=== PATIENT | female | born 1960 | race Caucasian/White ===

== ENCOUNTER 2020-02-20 10:51 | Outpatient (CLI) | payer OTHER, SELFPAY ==
--- NOTE | ~2020-02-20 | MM_ITS ---
EXAMINATION: MM screening [facility] w santy HISTORY: Screening mammogram TECHNIQUE: Craniocaudal and mediolateral oblique 3-D tomosynthesis images were obtained and synthetic 2-D images were generated. CAD analysis was submitted and interpreted. COMPARISON: Comparison to multiple prior studies sequentially, with oldest reviewed study dated 09/08. BREAST PARENCHYMAL COMPOSITION: There are scattered areas of fibroglandular density. FINDINGS: There is no evidence of suspicious mass, calcification, or architectural distortion to sugg est malignancy in either breast. There has been no suspicious interval change. IMPRESSION: 1. No mammographic evidence of malignancy. 2. Recommend routine screening mammography in one year. BI-RADS Category 1: Negative Reviewed, dictated and finalized at location A.
== END 2020-02-20 10:52 | disposition home or self-care (01) ==
PROVIDERS: PCP Nurse Practitioner Family; Visit Provider Nurse Practitioner Family
DX: Z12.31 Encounter for screening mammogram for malignant neoplasm of breast (principal)
CPT/HCPCS: 77063; 77067

== ENCOUNTER 2021-03-02 12:45 | Outpatient (CLI) | payer OTHER, SELFPAY ==
--- NOTE | ~2021-03-02 | MM_ITS ---
EXAMINATION: MM screening [facility] BI w santy HISTORY: Screening mammogram TECHNIQUE: Craniocaudal and mediolateral oblique 3-D tomosynthesis images were obtained and synthetic 2-D images were generated. CAD analysis was submitted and interpreted. COMPARISON: 02/20/2020, 10/13/2018, 06/09/2018, 09/28/2017 BREAST PARENCHYMAL COMPOSITION: There are scattered areas of fibroglandular density. FINDINGS: There is no evidence of suspicious mass, calcification, or architectural distortion to sugg est malignancy in either breast. There has been no suspicious interval change. IMPRESSION: 1. No mammographic evidence of malignancy. 2. Recommend routine screening mammography in one year. BI-RADS Category 1: Negative Reviewed, dictated and finalized at location A.
== END 2021-03-02 12:46 | disposition home or self-care (01) ==
LOC: CHSIMG 12:47
PROVIDERS: PCP Nurse Practitioner Family; Visit Provider Nurse Practitioner Family
DX: Z12.31 Encounter for screening mammogram for malignant neoplasm of breast (principal)
CPT/HCPCS: 77063; 77067

== ENCOUNTER 2022-03-10 12:03 | Outpatient (CLI) | payer OTHER, SELFPAY ==
--- NOTE | ~2022-03-10 | MM_ITS ---
EXAMINATION: MM screening [facility] BI w santy HISTORY: Screening TECHNIQUE: Craniocaudal and mediolateral oblique 3-D tomosynthesis images were obtained and synthetic 2-D images were generated. CAD analysis was submitted and interpreted. COMPARISON: Comparison to multiple prior studies sequentially, with oldest reviewed study dated 02/2018. BREAST PARENCHYMAL COMPOSITION: There are scattered areas of fibroglandular density. FINDINGS: There is no evidence of suspicious mass, calcification, or architectural distortion to sugg est malignancy in either breast. There has been no suspicious interval change. IMPRESSION: 1. No mammographic evidence of malignancy. 2. Recommend routine screening mammography in one year. BI-RADS Category 1: Negative Reviewed, dictated and finalized at location D.
== END 2022-03-10 12:04 | disposition home or self-care (01) ==
PROVIDERS: PCP Nurse Practitioner Family; Visit Provider Nurse Practitioner Family
DX: Z12.4 Encounter for screening for malignant neoplasm of cervix (principal); Z12.31 Encounter for screening mammogram for malignant neoplasm of breast
CPT/HCPCS: 77063; 77067; 87491; 87591; 87624; 88175; G0145

== ENCOUNTER 2023-06-21 08:08 | Outpatient (CLI) | payer OTHER, SELFPAY ==
--- NOTE | ~2023-06-21 | MM_ITS ---
EXAMINATION: MM screening [facility] BI w santy HISTORY: Screening mammogram TECHNIQUE: Craniocaudal and mediolateral oblique 3-D tomosynthesis images were obtained and synthetic 2-D images were generated. CAD analysis was submitted and interpreted. COMPARISON: 03/10/2022, 03/02/2021, 02/20/2020 BREAST PARENCHYMAL COMPOSITION: The breasts are heterogeneously dense, which may obscure small masses . FINDINGS: RIGHT BREAST: An asymmetry is present in the posterior third of the inner breast 9 cm from the nipple on the craniocaudal view. LEFT BREAST: No suspicious mass, calcification, or architectural distortion are identified to suggest malignancy. There has been no suspicious interval change. IMPRESSION: 1. Right breast asymmetry. 2. Additional mammographic views and possible breast ultrasound are recommended. BI-RADS Category 0: Incomplete: Needs additional imaging evaluation. Reviewed, dictated and finalized at location A. IMPRESSION: 1. Right breast asymmetry. 2. Additional mammographic views and possible breast ultrasound are recommended . BI-RADS Category 0: Incomplete: Needs additional imaging evaluation.
== END 2023-06-21 08:09 | disposition home or self-care (01) ==
LOC: CHSIMG 08:09
PROVIDERS: PCP Nurse Practitioner Family; Visit Provider Nurse Practitioner Family
DX: Z12.31 Encounter for screening mammogram for malignant neoplasm of breast (principal); R92.8 Other abnormal and inconclusive findings on diagnostic imaging of breast
CPT/HCPCS: 77063; 77067

== ENCOUNTER 2023-06-29 13:54 | Outpatient (CLI) | payer OTHER, SELFPAY ==
--- NOTE | ~2023-06-29 | MMUS_ITS ---
EXAMINATION: MM diagnostic [facility] RT w santy, US breast RT limited HISTORY: Follow-up right breast asymmetry TECHNIQUE: Additional 3-D tomosynthesis images of the right breast were performed and synthetic 2-D i mages were generated. CAD analysis was submitted and interpreted. High resolution Limited right breas t ultrasound was performed. COMPARISON: 06/21/2023 BREAST PARENCHYMAL COMPOSITION: BREAST PARENCHYMAL COMPOSITION: There are scattered areas of fibroglandular density. FINDINGS: MAMMOGRAPHIC FINDINGS: There is no suspicious mass, calcification or architectural distortion in the right breast to suggest malignancy. ULTRASOUND: Limited right breast ultrasound: Normal heterogeneous echotexture without focal solid or cystic mass. Mildly prominent ducts are noted. IMPRESSION: 1. No evidence for malignancy in the right breast. 2. Routine yearly screening mammogram and regular clinical breast examination are recommended. BI-RADS Category 1: Negative Reviewed, dictated and finalized at location A. 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 No evidence for malignancy in the right breast. 2. Routine yearly screening mammogram and regular clinical breast examination a re recommended. BI-RADS Category 1: Negative
== END 2023-06-29 13:55 | disposition home or self-care (01) ==
LOC: CHSIMG 13:55
PROVIDERS: PCP Nurse Practitioner Family; Visit Provider Nurse Practitioner Family
DX: R92.8 Other abnormal and inconclusive findings on diagnostic imaging of breast (principal)
CPT/HCPCS: 76642; 77061; 77065; G0279

== ENCOUNTER 2024-07-31 07:59 | Outpatient (CLI) | payer OTHER, SELFPAY ==
--- NOTE | ~2024-07-31 | MM_ITS ---
EXAMINATION: MM screening [facility] BI w santy HISTORY: Screening TECHNIQUE: Craniocaudal and mediolateral oblique 3-D tomosynthesis images were obtained and synthetic 2-D images were generated. CAD analysis was submitted and interpreted. COMPARISON: Comparison to multiple prior studies sequentially, with oldest reviewed study dated 03/02. BREAST PARENCHYMAL COMPOSITION: Dense: The breasts are heterogeneously dense, which may obscure small masses FINDINGS: There is no evidence of suspicious mass, calcification, or architectural distortion to sugg est malignancy in either breast. There has been no suspicious interval change. IMPRESSION: 1. No mammographic evidence of malignancy. 2. Recommend routine screening mammography in one year. BI-RADS Category 1: Negative Reviewed, dictated and finalized at location B. 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
== END 2024-07-31 08:00 | disposition home or self-care (01) ==
PROVIDERS: PCP Nurse Practitioner Family; Visit Provider Nurse Practitioner Family
DX: Z12.31 Encounter for screening mammogram for malignant neoplasm of breast (principal)
CPT/HCPCS: 77063; 77067

== ENCOUNTER 2025-03-08 07:07 | Outpatient (CLI) | payer MEDICARE, SELFPAY ==
--- OUTSIDE RECORDS SUMMARY | 2025-03-08 07:09 | XMS_ITS | Referral Summary ---
Author Organization [facility] al Address [address] [place] [address] Care Team Providers Care Equipment Service Lead Name Role Phone Brenton Johnson MD Unavailable Padmini Serrano [facility] Unavailable Nyla Analisa Gonzalez NP Primary Care Provider [phone] Encounters Date Type Department Care Team Description 02/17/2025 11:55 AM CDT - 02/17/2025 2:07 PM CDT Emergency [facility] Emergency Department [address] [place] [address] Chest wall muscle strain, initial encounter (Primary Dx); Sprain of ribs, initial encounter; Abnormal complete blood count Discharge Disposition: Discharge to home or self care from Last 3 Months Allergies Active Allergy Reactions Criticality Noted Date Comments Penicillins Hives Medium 05/21/2013 Medications * This document contains information received from the source organization and may not represent a complete record from that organization. multivit-min- iron fum-folic ac 7.5 mg iron-400 mcg tablet Active ergocalcifero l, vitamin D2, (VITAMIN D2 ORAL) Take by mouth Active glucosamine HCl/chondroit in poon (GLUCOSAMINE- CHONDROITIN ORAL) Take by mouth Active gentamicin (GARAMYCIN) 0.1 % creamIndicati ons:Pseudomon as infection Apply topically 3 (three) times a day 30 g 6 07/22/20 22 Active Additional Information Patient not taking.Reported on 07/12/2024 tiZANidine (ZANAFLEX) 4 mg tabletIndicat ions:Chest wall muscle strain, initial encounter Take 0.5-1 tablets (2-4 mg total) by mouth every 8 (eight) hours as needed for muscle spasms Collaborating physician Brenton Engel MD 20 tablet 02/18/20 25 Active traMADol-acet aminophen (ULTRACET) 37.5-325 mg per tabletIndicat ions:Chest wall muscle strain, initial encounter,Spr ain of ribs, initial encounter Take 1 tablet by mouth every 8 (eight) hours as needed for pain P.r.n. pain not relieved by [id number]-[id number] pain medication alone. Take with food. Collaborating physician Brenton Engel MD. Note to pharmacist: May substitute with tramadol 50 mg same amount and directions. 20 tablet 02/18/20 25 Active traMADol-acet aminophen (ULTRACET) 37.5-325 mg per tabletIndicat ions:Chest wall muscle strain, initial encounter,Spr ain of ribs, initial encounter Take 1 tablet by mouth every 8 (eight) hours as needed for pain P.r.n. pain not relieved by qafl-jov-mfdaziv pain medication alone. Take with food. Collaborating physician Brenton Engel MD. Note to pharmacist: May substitute with tramadol 50 mg same amount and directions. 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 05/12/2018 Resolved Problems Problem Noted Date Diagnosed Date Resolved Date Closed fracture of right distal radius 02/24/2018 03/31/2018 Immunizations Immunization Administration Dates Next Due COVID-19 mRNA (Quarterly) 0.3 m L (30 mcg) vaccine (12 years and up) 06/19/2024 Heplisav-b (Hepatitis B) 09/13/2024,08/16/2024 Influenza, Trivalent, Cell C ulture-based MDCK, Preservative Free, Antibiotic Free, Intramuscular 06/19/2024 Pfizer SARS-CoV-2 Monovalent Vaccination (12+ Yrs) PURPLE 08/28/2020,08/07/2020 Pfizer Sars-Cov-2 Bivalent Vaccination (12+ YRS) 06/10/2022 Tdap 05/08/2021 ZOSTER Recombinant 01/22/2022,10/09/2021 Social History Tobacco Use Types Packs/Day Years Used Date Smoking Tobacco: Never Passive Smoke Exposure: Never Smokeless Tobacco: Never Tobacco Cessation:Counseling Given: Not Answered Alcohol Use Standard Drinks/Week Comments No 0 (1 standard drink = 0.6 oz pur e alcohol) Personal Safety Answer Date Recorded Have you ever been in or are you currently in a harmful physical or emotional relationship or is someone making you feel afraid or unsafe? 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 Gender Identity Female 10/11/2019 11:54 AM USER EXPERIENCE DEVELOPER Sexual Orientation Straight 10/11/2019 11 :54 AM USER EXPERIENCE DEVELOPER Last Filed Vital Signs Vital Sign Reading Time Taken Comments Blood Pressure 110/80 02/17/2025 2:00 PM CDT Pulse 59 02/17/2025 2:00 PM CDT Temperature 37.4 C (99.3 F) 02/17/2025 11:52 AM CDT Respiratory Rate 14 02/17/2025 2:00 PM CDT Oxygen Saturation 93% 02/17/2025 2:00 PM CDT Inhaled Oxygen Concentration - - Weight 56.7 kg (125 lb) 02/17/2025 11:53 AM CDT Height 166.2 cm (5' 5.43) 07/12/2024 8:40 AM CS T Body Mass Index 20.53 07/12/2024 8:40 AM USER EXPERIENCE DEVELOPER Plan of Treatment Not on file Procedures Procedure Name Priority Date/Time Associated Diagnosis Comments CT CHEST PE W CONTRAST ED 02/17/2025 1:17 PM CDT ECG 12-LEAD STAT 02/17/2025 12:42 PM CDT MANUAL DIFFERENTIAL STAT 02/17/2025 1 2:21 PM CDT EGFR STAT 02/17/2025 12:21 PM CDT TROPONIN T HIGH-SENSITIVITY STAT 02/17/2025 12:21 PM CDT APTT STAT 02/17/2025 12:21 PM CDT PROTIME-INR STAT 02/17/2025 12:21 PM CDT COMPREHENSIVE METABOLIC PANEL STAT 02/17/2025 12:21 PM CDT CBC WITH AUTO DIFFERENTIAL STAT 02/17/2025 12:21 PM CDT DEXA AXIAL SKELETON BONE DENSITY 1 OR MORE SITES Schedule Routine, Read Routine (OP Routine) 05/09/2018 8:29 AM CDT Closed fracture of right wrist, initial encounter from Last 3 Months or Most Recently Relevant to Health Maintenance Results * CT Chest PE (CTA) W Contrast (02/17/2025 1:17 PM CDT) Anatomical Region Laterality Modality Body N/A Computed Tomogra phy 02/17/2025 1:24 PM CDT Narrative 02/17/2025 1:28 PM CDT EXAM DESCRIPTION: CT CHEST PE (CTA) W CONTRAST REASON FOR STUDY: Pulmonary embolism (PE) suspected, high prob Pt states she injured her left ribs about 1 week ago. Pt got off a flight and is now having increased left sided chest pain with some SOB. TECHNIQUE: CT angiogram of the chest performed with intravenous contrast using helical scanning technique with dynamic intravenous contrast injection. Reconstructed coronal and sagittal MPR images reviewed. All images stored on PACS. 3D MIP images rendered on scanning unit and reviewed at time of interpretation. Automated exposure control was used as a dose optimization technique for this examination. CONTRAST TYPE/DOSE: 75mL of IOVERSOL 350 MG IODINE/ML INTRAVENOUS SYRINGE injected via intravenous COMPARISON: Chest radiograph 04/30/2019 FINDINGS: VASCULATURE: No identified pulmonary emboli. LUNGS: Mild bibasilar atelectasis. No nodules or masses. No pneumonia. PLEURA: No effusion. No pneumothorax. MEDIASTINUM/DIANE: No identified masses or abnormal nodes. HEART: Heart size is normal with no pericardial effusion. AXILLA: No adenopathy. CHEST WALL: No masses. No subcutaneous air. HARDWARE/LINES/TUBES: None. UPPER ABDOMEN: No significant abnormality. MUSCULOSKELETAL: No significant abnormality. OTHER: No significant abnormality. IMPRESSION: No evidence of pulmonary embolism. No acute cardiopulmonary findings THIS IS AN ELECTRONICALLY VERIFIED FINAL REPORT 02/17/2025 1:28 PM - Electronically signed by Izzy Turner M.D. FT: FT Report ID: [id number] Reading Location: [id number] Procedure Note Izzy Pruitt MD - 02/17/2025 EXAM DESCRIPTION: CT CHEST PE (CTA) W CONTRAST REASON FOR STUDY: Pulmonary embolism (PE) suspected, high prob Pt states she injured her left ribs about 1 week ago. Pt got off a flightand is now having increased left sided chest pain with some SOB. TECHNIQUE: CT angiogram of the chest performed with intravenous contrastusing helical scanning technique with dynamic intravenous contrast injection. Reconstructed coronal and sagittal MPR images reviewed. All images storedon PACS. 3D MIP images rendered on scanning unit and reviewed at time of interpretation. Automated exposure control was used as a doseoptimization technique for this examination. CONTRAST TYPE/DOSE: 75mL of IOVERSOL 350 MG IODINE/ML INTRAVENOUSSYRINGE injected via intravenous COMPARISON: Chest radiograph 04/30/2019 FINDINGS: VASCULATURE: No identified pulmonary emboli. LUNGS: Mild bibasilar atelectasis. No nodules or masses. No pneumonia. PLEURA: No effusion. No pneumothorax. MEDIASTINUM/DIANE: No identified masses or abnormal nodes. HEART: Heart size is normal with no pericardial effusion. AXILLA: No adenopathy. CHEST WALL: No masses. No subcutaneous air. HARDWARE/LINES/TUBES: None. UPPER ABDOMEN: No significant abnormality. MUSCULOSKELETAL: No significant abnormality. OTHER: No significant abnormality. IMPRESSION: No evidence of pulmonary embolism. No acute cardiopulmonary findings THIS IS AN ELECTRONICALLY VERIFIED FINAL REPORT 02/17/2025 1:28 PM - Electronically signed by Izzy Turner M.D. FT: FT Report ID: [id number] Reading Location: [id number] [facility] IMG CT PROCEDURES Final Resu lt * ECG 12 lead (02/17/2025 12:42 PM CDT) 02/17/2025 12:4 2 PM CDT Narrative [facility] - 02/18/2025 8:20 AM CDT Vent Rate: 71 bpm RR Interval: 844 msec ME Interval: 154 msec QRS Duration: 93 msec QT Interval: 394 msec QTC Interval: 416 msec P-R-T Mcalester: 46 - -23 - 9 degrees IMPRESSION: SINUS RHYTHM BORDERLINE LEFT AXIS DEVIATION [QRS AXIS < -20] LOW QRS VOLTAGE IN PRECORDIAL LEADS [QRS DEFLECTION < 1.0 mV IN CHEST LEADS] BORDERLINE ECG Electronically Signed By: Kumar Saldana MD [facility] ECG ORDERABLES Final Result Performing Organization Address [facility] Co de Phone Number [facility] Aiming [facility] * Troponin T high-sensitivity (02/17/2025 12:21 PM CDT) Trop T hs <6 <=14 ng/L Comment: Interpretive Data For further hscTnT resources including the diagnostic algorithm and an aid in interpretation, copy and paste this link: [email or web address].testcatalog.org/[email or web address] Current Interpretive Data last revised 2020. Blood 02/17/2025 12:2 1 PM CDT 02/17/2025 12:24 PM CDT [facility] LAB BLOOD ORDERABLES Final R esult NADIA SAUCEDO ([place]) 1 [facility] [place] [address] * eGFR (02/17/2025 12:21 PM CDT) eGFR 90 >=60 mL/min/1. 73 m2 Comment: Interpretive Data Reference Interval Normal >/= 90 mL/min/1.73m2 Mildly decreased* 60 - 89 mL/min/1.73m2 Mildly to moderately decreased 45 - 59 mL/min/1.73m2 Moderately to severely decreased 30 - 44 mL/min/1.73m2 Severely decreased 15 - 29 mL/min/1.73m2 Kidney Failure < 15 mL/min/1.73m2 *Relative to young adult level Estimated glomerular filtration rate is determined by the 2020 CKD-EPI equation recommended by the National Kidney Foundation (A Unifying Approach to GFR Estimation: Recommendations of the NKF-ASK Task Force on Reassessing the Inclusion of Race in Diagnosing Kidney Disease, JASN 2020). The CKD-EPI equation should not be used for patients with unstable renal function and has not been validated in children and those over 70. Current interpretive data was last reviewed 2021. Blood 02/17/2025 12:2 1 PM CDT 02/17/2025 12:24 PM CDT us [facility] LAB BLOOD ORDERABLES Final R esult NADIA SAUCEDO ([place]) 1 [facility] Department [place] [address] * (ABNORMAL) CBC with auto differential (02/17/2025 12:21 PM CDT) WBC 7.81 3.80 - 9.90 K/cumm Hgb 12.7 11.9 - 15.5 g/dL [facility] ([place]) Hct 38.5 35.6 - 45.5 % [facility] Plt 152 150 - 400 K/cumm [facility] ([place] MPV 12.8(H) 9.1 - 12.3 fL [facility] RBC 4.13 3.90 - 5.20 M/cumm [facility] ([place]) MCV 93.2 81.3 - 96.4 fL [facility]) MCH 30.8 27.1 - 33.3 pg [facility]) MCHC 33.0 32.3 - 35.7 g/dL [facility]) RDW CV 12.0 11.1 - 14.9 % [facility] RDW SD 41.2 35.7 - 48.1 fL [facility] ([place]) NRBC abs 0.00 0.00 - 0.01 K/cumm [facility] Blood 02/17/2025 12:2 1 PM CDT 02/17/2025 12:24 PM CDT us [facility] LAB BLOOD ORDERABLES Final R esult [facility] ([place]) 1 [facility] Department [place] [address] * (ABNORMAL) Manual Differential (02/17/2025 12:21 PM CDT) Differential Manual Cells Counted 100 [facility] ([place]) Neutrophil abs 6.48 1.50 - 6.50 K/cumm [facility] ([place]) Imm gran abs 0.08 0.00 - 0.10 K/cumm [facility] ([place]) Lymphocyte abs 0.94 0.80 - 3.30 K/cumm [facility] ([place]) Monocyte abs 0.23 0.20 - 0.80 K/cumm [facility] ([place]) Eosinophil abs 0.08 0.00 - 0.50 K/cumm [facility] ([place]) Neutrophil pct 81.0 % [facility] ([place]) Comment: Interpretive Data Percent cell count reference ranges are not reported, since discordance with absolute values may lead to misinterpretation of CBC data. Current Interpretive Data was last revised on 2017. Lymphocyte pct 10.0 % [facility] ([facility]) Comment: Interpretive Data Percent cell count reference ranges are not reported, since discordance with absolute values may lead to misinterpretation of CBC data. Current Interpretive Data was last revised on 2017. Monocyte pct 3.0 % [facility] ([facility]) Comment: Interpretive Data Percent cell count reference ranges are not reported, since discordance with absolute values may lead to misinterpretation of CBC data. Current Interpretive Data was last revised on 2017. Eosinophil pct 1.0 % [facility] ([facility]) Comment: Interpretive Data Percent cell count reference ranges are not reported, since discordance with absolute values may lead to misinterpretation of CBC data. Current Interpretive Data was last revised on 2017. Band Neutrophil pct 2.0 0.0 - 5.0 % [facility] ([place]) Promyelocyte pct 1.0(H) 0.0 - 0.0 % [facility] ([place]) Variant lymph pct 2.0(H) 0.0 - 0.0 % [facility] ([place]) RBC morphology Normal [facility] ([place]) Platelet estimate Adequate [facility] ([place]) Blood 02/17/2025 12:2 1 PM CDT 02/17/2025 12:24 PM CDT [facility] LAB BLOOD ORDERABLES Final R esult Performing Organization Address [facility] Co de Phone Number NADIA SAUCEDO ([place]) 1 [facility] [employer] [place] [address] * aPTT (02/17/2025 12:21 PM CDT) aPTT 33 28 - 38 sec [facility] ([place]) Comment: Interpretive Data Heparin therapeutic range: 66.0 - 100.0 seconds. Range based on correlation with therapeutic heparin activity range of 0.3 - 0.7 Units/mL. Current interpretive data was last revised on 2023. Blood 02/17/2025 12:2 1 PM CDT 02/17/2025 12:24 PM CDT [facility] LAB BLOOD ORDERABLES Final R esult Performing Organization Address [facility] Co de Phone Number NADIA SAUCEDO ([place]) 1 [facility] [place] [address] * Protime-INR (02/17/2025 12:21 PM CDT) PT 11.8 9.7 - 13.0 sec [facility] ([place]) INR 1.09 0.90 - 1.20 [facility] ([facility]) Comment: Interpretive data Oral anticoagulant therapeutic ranges: Venous thromboembolism prophylaxis or treatment: 2.0-3.0 CARDIOLOGY Standard range: 2.0-3.0 High-intensity range: 2.5-3.5 Refer to indication-specific guidelines for appropriate target ranges for prosthetic heart valve replacement. Current interpretive data was last revised on 2019. Blood 02/17/2025 12:2 1 PM CDT 02/17/2025 12:24 PM CDT [facility] LAB BLOOD ORDERABLES Final R esult [facility] ([place]) 1 [facility] [place] [address] * Comprehensive metabolic panel (02/17/2025 12:21 PM CDT) Sodium 137 135 - 145 mmol/L Potassium, pl 3.9 3.3 - 4.9 mmol/L [facility] ([place]) Chloride 101 97 - 110 mmol/L [facility] ([facility]) CO2 24 22 - 32 mmol/L [facility] ([place]) Anion gap 12 2 - 15 mmol/L [facility] ([place]) BUN 13 6 - 25 mg/dL [facility] ([place]) Creatinine 0.74 0.60 - 1.10 mg/dL [facility] ([place]) Glucose 127 70 - 199 mg/dL [facility] ([place]) Comment: Interpretive Data Fasting glucose >/= 126 mg/dl is diagnostic for diabetes. Fasting is defined as no caloric intake for at least 8 hours. Fasting glucose between 100 mg/dl to 125 mg/dl is diagnostic of prediabetes. In a patient with classic symptoms of hyperglycemia or hyperglycemic crisis, a random glucose >/= 200 mg/dl is diagnostic for diabetes. In the absence of unequivocal hyperglycemia, results should be confirmed by repeat testing. The classification and Diagnosis of Diabetes Diabetes Care 202; 46: S19-S40. Current interpretive data was last revised 2022. Calcium 9.0 8.5 - 10.3 mg/dL [facility] ([place]) Bilirubin, total 0.3 0.1 - 1.2 mg/dL [facility] ([place]) Protein, pl 7.1 6.5 - 8.5 g/dL [facility] ([place]) Albumin 4.0 3.5 - 5.0 g/dL [facility] ([place]) Alk phos 73 40 - 130 Units/L [facility] ([place]) ALT 12 7 - 45 Units/L [facility]) AST 20 10 - 45 Units/L [facility] ([place]) Blood 02/17/2025 12:2 1 PM CDT 02/17/2025 12:24 PM CDT [facility] LAB BLOOD ORDERABLES Final R esult [facility] ([facility]) 1 [facility] Department of Laboratories [place], [place] [id number] * Dexa Axial Skeleton Bone Density 1 or 2 Site (05/09/2018 8:29 AM CDT) Anatomical Region Laterality Modality Body N/A Radiographic Cherelle ging Narrative 05/09/2018 9:06 AM CDT Patient Name: Nadia Soto Date of : 1960 Date of scan: 05/09/2018 Bone mineral density was performed on a [employer] Discovery Densitometer. Machine Cross-calibration and Precision studies have been performed with a least significant change of 0.024 g/cm at the spine, 0.020 g/cm at the total proximal femur, and 0.014g/cm at the forearm. HISTORY: This is a 57 y.o. postmenopausal female with a history of low bone mass. Currently on treatment with calcium and vitamin D. Previously treated with glucocorticoids . With a current complaint of back pain. History of tobacco use: History Smoking Status Never Smoker INDICATIONS: Menopause status, treatment monitoring, history of prior wrist fracture, history of glucocorticoids use and history of low bone mass. FINDINGS: BONE MINERAL DENSITY OF THE LUMBAR SPINE Bone Mineral Density (BMD) of the lumbar spine was measured from L1-L4 and the average density was calculated to be 0.821 gm/cm. This corresponds to a T-score standard deviations from the mean of young adults of -2.1. When compared to the previous study of 07/04/2017 there has been no significant change noted. BONE MINERAL DENSITY OF THE PROXIMAL FEMUR Bone Mineral Density (BMD) of the left hip total was found to be 0.736 gm/cm2. This corresponds to a T-score standard deviations from the mean of young adults of -1.7. Femoral neck is 0.603 gm/cm2 with a T-score of -2.2. When compared to the previous study of 07/04/2017 there has been no significant change noted. SUMMARY: Bone mineral density shows evidence of low bone mass in the hip and spine and moderately increased fracture risk. There has been no significant changes in bone mineral density since previous measurement. ADDITIONAL COMMENTS: If the patient has a history of a fragility fracture, a fracture that occurred with trauma equivalent to a fall from a standing position or less, then the diagnosis is osteoporosis. The risk of osteoporotic fracture increases approximately 2-fold for each 1.0 SD decrease in T-score. However, low bone density is not the only risk factor for fracture. Other factors include patient s age, previous osteoporotic fracture or prior fracture as an adult, loss of height of greater than 2 inches, corticosteroid use, risk of falling, risk of injury, and family history of osteoporosis. Not everyone with low bone mineral density has osteoporosis. Osteomalacia and other metabolic bone disorders should also be considered where indicated. Patients who have osteoporosis should be evaluated for specific diseases and conditions (secondary causes) that may cause or contribute to bone loss. Consider repeating this study in 1-2 years to assess the patient s response to treatment, if applicable. It is recommended that any follow up exam be performed on the same machine if possible for better accuracy. DEFINITIONS: Osteoporosis: BMD at or below -2.5 T-score Osteopenia (low bone mass): BMD between -1.0 and-2.5 T-score. The Bone Health Program adopts the following WHO definitions: Osteoporosis: BMD below -2.5 S.D. as compared to the BMD of young normal adults. Osteopenia or Low Bone Mass: BMD between -1.0 and -2.5 S.D. below the BMD of young normal adults. Normal Bone Density: BMD equal to or greater than -1.0 S.D. as compared to the BMD of young normal adults. References: 1) Bo, Annals of Internal Medicine 114(11): 919-923 (1990) 2) Lon, Lancet 341 : 72-75 (1992) 3) Fernando, Journal Bone and Mineral Research 7(6): 633-8 (1991) 4) Lionel, Journal Bone and Mineral Research 8(10):1227-33 (1992) The history and data sections of the bone mineral density scan were prepared by Trang Serrano who is accredited by the International Society of Clinical Densitometry. The overall patient assessment and scan interpretation were performed by Lupe Spencer M.D. who is certified by the International Society of Clinical Densitometry. [id number] Erica Rodriguez NP IMG DXA PROCEDURES Final Resul t from Last 3 Months or Most Recently Relevant to Health Maintenance Insurance MEDICARE MEDICARE [employer] Care Teams Equipment Service Lead Relationship Specialty Start Date End Date Analisa Tavera NP [address] [place] [address] PCP - General Nurse Practitioner 08/06/21 Brenton Johnson MD [address] [facility] [address] Referring Physician Orthopedic Surgery 03/31/18 Padmini Serrano CPhT 05/03/18
--- OUTSIDE RECORDS SUMMARY | 2025-03-08 07:09 | XMS_ITS | Clinical Summary ---
Author Organization [facility] al Address [address] [place] [address] Care Team Providers Care Conference Interpreter Name Role Phone Brenton Johnson MD Unavailable Padmini Serrano [facility] Unavailable Nyla Analisa Gonzalez NP Primary Care Provider [phone] Allergies Active Allergy Reactions Criticality Noted Date [...] for pain P.r.n. pain not relieved by [id number] pain medication alone. Take with food. Collaborating [...] for pain P.r.n. pain not relieved by [id number] pain medication alone. Take with food. Collaborating [...] fracture of right distal radius 02/24/2018 03/31/2018 Encounters Date Type Department Care Team Description 02/17/2025 11:55 AM CDT - 02/17/2025 2:07 PM CDT Emergency [facility] Emergency Department [address] [place] [address] Chest wall muscle strain, initial encounter (Primary Dx); Sprain of ribs, initial encounter; Abnormal complete blood count Discharge Disposition: Discharge to home or self care from Last 3 Months Immunizations Immunization Administration Dates Next Due COVID-19 mRNA ([employer]) 0.3 m L (30 mcg) vaccine (12 years and up) 06/19/2024 Heplisav-b (Hepatitis B) 09/13/2024,08/16/2024 Influenza, Trivalent, Cell C ulture-based MDCK, Preservative Free, Antibiotic Free, Intramuscular 06/19/2024 Pfizer SARS-CoV-2 Monovalent Vaccination (12+ Yrs) PURPLE 08/28/2020,08/07/2020 Pfizer Sars-Cov-2 Bivalent Vaccination (12+ YRS) 06/10/2022 Tdap 05/08/2021 ZOSTER Recombinant 01/22/2022,10/09/2021 Surgical History Surgery Date Site/Laterality Comments SECTION HERNIA REPAIR Medical History Medical History Date Comments Osteoarthritis Family History Medical History Relation Name Comments Cancer Father Arthritis Mother Cancer Mother Heart disease Mother Relation Name Status Comments Father Mother Social History Tobacco Use Types Packs/Day Years [...] on file Legal Sex Female 4:42 AM MAINFRAME ARCHITECT Gender Identity Female 10/11/2019 11:54 AM MAINFRAME ARCHITECT Sexual Orientation Straight 10/11/2019 11 :54 AM MAINFRAME ARCHITECT Obstetrics History Last Filed Vital Signs Vital Sign Reading [...] Body Mass Index 20.53 07/12/2024 8:40 AM MAINFRAME ARCHITECT Plan of Treatment Health Maintenance Due Date Last Done Comments Breast Cancer Screening-Mammogram 1960 Cervical Cancer Screening 1960 Colon Cancer Screening-Colonoscopy 1960 Depression Screening 1960 Fall Risk Assessment 1960 Hepatitis C Screening 1960 Pneumococcal vaccine 65+ (1 of 1 - PCV) 2009 Osteoporosis Screening-Bone Density Scan 05/09/2020 05/09/2018, 07/04/2017 Well Visit 65+ 2024 Covid-19 Vaccine (5 - 2023-2 5 season) 2024 06/19/2024, 06/10/2022, 08/28/2020, Additional history exists Influenza Vaccine (#1) 2025 06/19/2024 DTaP/Tdap/Td Vaccine (2 - Td or Tdap) 05/08/2031 05/08/2021 Zoster Vaccine Completed 01/22/2022, 10/09/2021 Hepatitis B Screening Completed 09/13/2024, 024 Procedures Procedure Name Priority Date/Time Associated Diagnosis [...] Izzy Turner M.D. FT: FT Report ID: [id number] Reading Location: [id number] Procedure Note Izzy Pruitt MD - 02/17/2025 [...] Izzy Turner M.D. FT: FT Report ID: [id number] Reading Location: [place] [address] PROCEDURES Final Resu lt * ECG 12 lead (02/17/2025 12:42 PM CDT) 02/17/2025 12:4 2 PM CDT [facility] - 02/18/2025 8:20 AM CDT Vent Rate: 71 bpm RR Interval: 844 msec VA Interval: 154 msec QRS Duration: 93 msec QT Interval: 394 msec QTC Interval: 416 msec P-R-T [place]atte: 46 - -23 - 9 degrees IMPRESSION: SINUS RHYTHM BORDERLINE LEFT AXIS DEVIATION [QRS AXIS < -20] LOW QRS VOLTAGE IN PRECORDIAL LEADS [QRS DEFLECTION < 1.0 mV IN CHEST LEADS] BORDERLINE ECG Electronically Signed By: Kumar Saldana MD [facility]S ECG ORDERABLES Final Result [facility] * Troponin T high-sensitivity (02/17/2025 12:21 PM CDT) Trop T hs <6 <=14 ng/L Comment: Interpretive Data For further hscTnT resources including the diagnostic algorithm and an aid in interpretation, copy and paste this link: https://nrl.testcatalog.org/show/hsTrop Current Interpretive Data last revised 2020. Blood 02/17/2025 12:2 1 PM CDT 02/17/2025 12:24 PM CDT [facility] LAB BLOOD ORDERABLES Final R esult NADIA SAUCEDO ([address] Department [place] [address] * eGFR (02/17/2025 12:21 PM CDT) eGFR [...] of Race in Diagnosing Kidney Disease, JASN 202). The CKD-EPI equation should not be used for patients with unstable renal function and has not been validated in children and those over 70. Current interpretive data was last reviewed 2021. Blood 02/17/2025 12:2 1 PM CDT 02/17/2025 12:24 PM CDT [facility] LAB BLOOD ORDERABLES Final R esult [facility] ([place]) [address] [facility] [place] [address] * (ABNORMAL) CBC with auto differential (02/17/2025 [...] RDW SD 41.2 35.7 - 48.1 fL [facility] ([place]) NRBC abs 0.00 0.00 - 0.01 K/cumm [facility] ([facility]) Blood 02/17/2025 12:2 1 PM CDT 02/17/2025 12:24 PM CDT [facility] BLOOD ORDERABLES Final R esult [facility] ([place]) 1 [facility] [place] [address] * (ABNORMAL) Manual Differential (02/17/2025 12:21 PM [...] ORDERABLES Final R esult Performing Organization Address City/[facility] Co de Phone Number NADIA SAUCEDO ([place]) [address] [place] [address] * aPTT (02/17/2025 12:21 PM CDT) aPTT 33 28 - 38 sec [facility] ([place]) Comment: Interpretive Data Heparin therapeutic range: 66.0 - 100.0 seconds. Range based on correlation with therapeutic heparin activity range of 0.3 - 0.7 Units/mL. Current interpretive data was last revised on 2023. Blood 02/17/2025 12:2 1 PM CDT 02/17/2025 12:24 PM CDT [facility] BLOOD ORDERABLES [facility] Performing Organization Address [facility] Co de Phone Number NADIA SAUCEDO ([place]) 1 [facility] [place] [address] * Protime-INR (02/17/2025 12:21 PM CDT) PT 11.8 9.7 - 13.0 sec [facility] ([place]) INR 1.09 0.90 - 1.20 [facility] ([place]) Comment: Interpretive data Oral anticoagulant therapeutic ranges: Venous thromboembolism prophylaxis or treatment: 2.0-3.0 CARDIOLOGY Standard range: 2.0-3.0 High-intensity range: 2.5-3.5 Refer to indication-specific guidelines for appropriate target ranges for prosthetic heart valve replacement. Current interpretive data was last revised on 2019. Blood 02/17/2025 12:2 1 PM CDT 02/17/2025 12:24 PM CDT [facility] BLOOD ORDERABLES Final R esult Performing Organization Address [facility] Co de Phone Number [facility] ([place]) 1 [facility] [place] [address] * Comprehensive metabolic panel (02/17/2025 12:21 PM CDT) Sodium 137 135 - 145 mmol/L Potassium, pl 3.9 3.3 - 4.9 mmol/L [facility] ([place]) Chloride 101 97 - 110 mmol/L [facility] ([place]) CO2 24 22 - 32 mmol/L [facility] ([place]) Anion gap 12 2 - 15 mmol/L [facility] ([place]) BUN 13 6 - 25 mg/dL [facility] ([place]) Creatinine 0.74 0.60 - 1.10 mg/dL [facility] ([place]) Glucose 127 70 - 199 mg/dL [facility] ([place]) Comment: Interpretive Data Fasting glucose >/= [...] BLOOD ORDERABLES Final R esult [facility]IA [facility]O [place] 1 [facility] [place] [address] * Dexa Axial Skeleton Bone Density 1 or 2 Site (05/09/2018 8:29 AM CDT) Anatomical Region Laterality Modality Body N/A Radiographic Cherelle ging Narrative 05/09/2018 9:06 AM CDT Patient Name: Nadia Soto Date of : 1960 Date of scan: 05/09/2018 Bone mineral density was performed on a HoloHeysan Discovery Densitometer. Machine Cross-calibration and Precision studies [...] of Internal Medicine 114(11): 919-923 (1990) 2) Forrest, Lancet 341 : 72-75 (1993) 3) Black, Journal Bone and Mineral Research 7(6): 633-8 [...] by the International Society of Clinical Densitometry. [id number] Erica Rodriguez PET CARE ATTENDANT IMG DXA PROCEDURES Final Resul t from Last 3 Months or Most Recently Relevant to Health Maintenance Insurance MEDICARE MEDICARE [employer] [facility] Care Teams Conference Interpreter Relationship Specialty Start Date End Date Analisa Tavera NP [address] [place] [address] PCP - General Nurse Practitioner 08/06/21 Brenton Johnson MD [address] [facility] [address] [place] [address] Referring Physician Orthopedic Surgery 03/31/18 Padmini Serrano, clinical application consultant 05/03/18
[2025-03-08 08:01] LABS: Hemoglobin A1C 5.7 % (<5.7)
[2025-03-08 08:39] LABS: Cholesterol 214 mg/dL (0-200); HDL Direct 66 mg/dL; Triglycerides 77 mg/dL (<150)
== END 2025-03-08 07:08 | disposition home or self-care (01) ==
LOC: CHSLAB 07:07
PROVIDERS: PCP Nurse Practitioner Family; Visit Provider Nurse Practitioner Family
DX: R73.09 Other abnormal glucose (principal); Z13.6 Encounter for screening for cardiovascular disorders
CPT/HCPCS: 36415; 80061; 83036; 86803

== ENCOUNTER 2025-08-05 07:54 | Outpatient (CLI) | payer MEDICARE, SELFPAY ==
--- NOTE | ~2025-08-05 | MM_ITS ---
EXAMINATION: MM screening moshe BI w santy HISTORY: Screening TECHNIQUE: Craniocaudal and mediolateral oblique 3-D tomosynthesis images were obtained and synthetic 2-D images were generated. CAD analysis was submitted and interpreted. COMPARISON: Comparison to multiple prior studies sequentially, with oldest reviewed study dated , 02/20/2020 BREAST PARENCHYMAL COMPOSITION: Dense: The breasts are heterogeneously dense, which may obscure small masses. FINDINGS: There is no evidence of suspicious mass, calcification, or architectural distortion to suggest malignancy in either breast. IMPRESSION: 1. No mammographic evidence of malignancy. 2. Recommend routine screening mammography in one year. BI-RADS Category 1: Negative Reviewed, dictated and finalized at location A. T SHIFT
--- NOTE | ~2025-08-05 | DEXA_ITS ---
Bone Density Report Name: LATRELL SALAMANCA Age: 64 Sex: Female Ethnicity: White Date of : 1960 Indication: postmenopausal; screening for osteoporosis; Referring Provider: Analisa Tavera Study: Bone densitometry was performed. Exam Date: August 05, 2025 Accession number: [id number] Bone Density: Region BMD T-score Z-score Classification AP Spine(L1-L4) 0.745 -2.7 -0.9 Osteoporosis Femoral Neck (Left) 0.567 -2.5 -1.0 Osteoporosis Total Hip (Left) 0.684 -2.1 -0.8 Osteopenia Femoral Neck (Right) 0.540 -2.8 -1.2 Osteoporosis Total Hip (Right) 0.692 -2.0 -0.8 Osteopenia Femoral Neck Mean 0.554 -2.7 -1.1 Osteoporosis Total Hip Mean 0.688 -2.1 -0.8 Osteopenia World Health Organization criteria for BMD impression classify patients as: Normal (T-score at or above -1.0), Osteopenia (T-score between -1.0 and -2.5), or Osteoporosis (T-score at or below -2.5). 10-year Fracture Risk: FRAX not reported because: Some T-score for Spine Total or Hip Total or Femoral Neck at or below -2.5 Clinical Information Provided by Patient: Has used the following medications: Vitamin D, 1/4 dose of MULTI Patient maximum height was 66.5 Menopause Age: 49 Drinks caffeinated beverages Onset of menses at age 13 Number of children 2 Impression: The patient has osteoporosis, based on the Right Femoral Neck T-score. Discussion: INCREASED RISK OF FRACTURE. BONE DENSITY IS UNDESIRABLY LOW AT ONE OR MORE SKELETAL SITES, CONSISTENT WITH POSTMENOPAUSAL OSTEOPOROSIS. This patient's lowest T-score meets the World Health Organization's (WHO) criteria for osteoporosis at one or more sites (T-score -2.5 or below). In untreated patients, the risk of osteoporotic fracture increases approximately two-fold for each 1.0 SD decrease in T-score. Low bone density is not the only risk factor for fracture; also consider factors such as patient's age, frailty or poor health, risk of falling, risk of injury, previous osteoporotic fracture, family history of osteoporosis, cigarette smoking, low body weight, etc. Not everyone with low bone mineral density has osteoporosis; osteomalacia and other metabolic bone disorders should also be considered. Patients who have osteoporosis should be evaluated for specific diseases and conditions (secondary causes) that may cause or contribute to bone loss. The [place] Association of Clinical Endocrinologists (AACE) and National Osteoporosis Foundation (NOF) recommend pharmacologic intervention for all postmenopausal women whose T-score is in this range. The patient should follow a healthful lifestyle (good nutrition with adequate calcium and vitamin D, and appropriate weight-bearing exercise). Follow-Up: Consider a repeat BMD and Vertebral Fracture Assessment (VFA) exam in 2 years or sooner if medically necessary, to reassess this patient's status. Reported by: ABDI on 08/05/2025 8:36:00 AM. Reviewed, dictated and finalized at location A.
== END 2025-08-05 07:55 | disposition home or self-care (01) ==
LOC: CHSIMG 07:56
PROVIDERS: PCP Nurse Practitioner Family; Visit Provider Nurse Practitioner Family
DX: Z12.31 Encounter for screening mammogram for malignant neoplasm of breast (principal); Z78.0 Asymptomatic menopausal state; M81.0 Age-related osteoporosis without current pathological fracture; M85.89 Other specified disorders of bone density and structure, multiple sites
CPT/HCPCS: 77063; 77067; 77080